=== PATIENT | female | born 2000 | race Hispanic/Latino ===

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

== ENCOUNTER 2023-04-23 17:18 | Emergency (ER) | payer OTHER, SELFPAY ==
[2023-04-23] MEDS ORDERED: Acetaminophen 500 MG TAB ONE (17:49)
[2023-04-23 18:15] LABS: Bilirubin Neg (Negative); Blood, Urine Negative (Negative); Clarity Clear (Clear); Glucose, Urine (Dipstick) Normal (Negative); Ketone, Urine Negative (Negative); Leukocyte Negative (Negative); Nitrite Negative (Negative); Protein, Urine (Dipstick) Negative (Neg-Trace); Specific Gravity, Urine 1.025 (1.005-1.030); Urobilinogen Normal mg/dL (Less than 2)
[2023-04-23 18:31] LABS: #Basophils 0.1 10x3/uL (0.0-0.2); #Eosinphils 0.4 10x3/uL (0.0-0.5); #Monocytes 0.9 10x3/uL (0.0-1.1); #Neutrophils 9.6 10x3/uL (1.5-8.4); %Basophils 0.4 % (0.0-2.0); %Eosinophils 2.5 % (0.0-6.0); %Monocytes 5.7 % (0.0-10.0); Hematocrit 37.8 % (34.9-44.5); Hemoglobin 12.8 g/dL (12.0-15.5); Mean Corpuscular HGB CONC 33.9 g/dL (32.0-36.0); Mean Corpuscular Hemoglobin 31.1 pg (27.0-33.0); Mean Corpuscular Volume 91.7 fl (81.6-98.3); Platelet Count 388 10x3/uL (150-450); RBC Distribution Width 12.7 % (11.5-14.5); Red Blood Cell (RBC) Count 4.12 10x6/uL (3.90-5.03); White Blood Cell (WBC) Count 15.2 10x3/uL (3.5-10.5)
[2023-04-23 18:43] LABS: ALT (SGPT) 16 U/L (8-55); AST (SGOT) 12 U/L (5-34); Albumin 3.7 g/dL (3.5-5.0); Alkaline Phosphatase 68 U/L (40-100); Anion Gap 12 mmol/L (10-20); BUN (Urea Nitrogen) 7 mg/dL (7.0-18.7); Bilirubin, Total 0.2 mg/dL (0.2-1.2); Calc. Creatinine Clearance 0 mL/min (70-130); Carbon Dioxide 19 mmol/L (22-29); Chloride 108 mmol/L (98-107); Estimated GFR 137; Globulin 2.9 g/dL (2.4-3.5); Glucose 93 mg/dL (70-105); Potassium 3.9 mmol/L (3.5-5.1); Protein, Total 6.6 g/dL (6.0-8.3); Sodium 135 mmol/L (136-145)
[2023-04-23 18:54] LABS: Bacteria/HPF 2+ HPF (None Seen); CAUTI Indications for Culture Pregnancy; RBC/HPF 0-3 HPF (0-3); WBC/HPF 0-3 HPF (0-3)
[2023-04-23 18:55] LABS: Urine Culture Reflex Yes Yes
== END 2023-04-23 19:30 | disposition home or self-care (01) ==
LOC: CSHERS 17:18
DX: R42 Dizziness and giddiness (principal); I10 Essential (primary) hypertension; F17.290 Nicotine dependence, other tobacco product, uncomplicated
CPT/HCPCS: 36415; 80053; 81001; 85025; 87086; 99284

== ENCOUNTER 2023-08-27 21:26 | Day surgery (SDC) | payer OTHER ==
[2023-08-27 22:10] VITALS: BMI 38.9
== END 2023-08-27 22:50 | disposition home or self-care (01) ==
LOC: CSHLD/OP 21:26
PROVIDERS: ATTEND Family Medicine
DX: O9A.213 Injury, poisoning and certain other consequences of external causes complicating pregnancy, third trimester (principal); O34.211 Maternal care for low transverse scar from previous cesarean delivery; Z79.82 Long term (current) use of aspirin; Z79.899 Other long term (current) drug therapy; W01.0XXA Fall on same level from slipping, tripping and stumbling without subsequent striking against object, initial encounter; Z3A.35 35 weeks gestation of pregnancy

== ENCOUNTER 2023-09-22 05:36 | Inpatient (IN) | payer OTHER ==
[2023-09-19 10:54] LABS: Hematocrit 38.4 % (34.9-44.5); Hemoglobin 13.2 g/dL (12.0-15.5); Mean Corpuscular HGB CONC 34.4 g/dL (32.0-36.0); Mean Corpuscular Hemoglobin 30.7 pg (27.0-33.0); Mean Corpuscular Volume 89.3 fL (81.6-98.3); Mean Platelet Volume 10.3 fL (7.4-10.4); Platelet Count 361 10x3/uL (150-450); RBC Distribution Width 13.1 % (11.5-14.5)
[2023-09-19 11:43] LABS: HBsAg Index 0.15 S/CO (0-0.99); HIV (1/2) Antibody/Antigen Non-Reactive (NonReactive); HIV 1/2 INDEX 0.13 S/CO (<1.00); Hep B Surf Ag Non-Reactive S/CO (NonReactive); Syphilis Antibody Nonreactive (Nonreactive); Syphilis Antibody Index 0.03 S/CO (<1.00 Non-Reactive)
[2023-09-22 05:47] VITALS: BMI 39.6
[2023-09-22] MEDS ORDERED: Methylergonovine 0.2 MG/ML VIAL IM PRN (09:09)
[2023-09-22] MEDS ORDERED: Tranexamic Acid 1,000 MG/10 ML VIAL IVP PRN (09:09)
[2023-09-22] MEDS ORDERED: Bicitra 30 ML UDCUP PO PRN (09:09)
[2023-09-22] MEDS ORDERED: Misoprostol 200 MCG TAB PR PRN (09:09)
[2023-09-22] MEDS ORDERED: Promethazine HCl 25 MG/ML VIAL IM PRN (09:09)
[2023-09-22] MEDS ORDERED: Lactated Ringer's 1,000 ML IV SCH (09:09)
[2023-09-22] MEDS ORDERED: Oxytocin 30 units/NS 500 ML 500 ML IV SCH (09:09)
[2023-09-22] MEDS ORDERED: Diphenoxylate HCl/Atropine Tablet PO PRN (09:09)
[2023-09-22] MEDS ORDERED: hydrALAZINE 20 MG/ML VIAL SLOW IVP PRN ×2 (09:09→10:51)
[2023-09-22] MEDS ORDERED: Famotidine/PF 20 mg/2ml Vial SLOW IVP PRN (09:09)
[2023-09-22] MEDS ORDERED: CEFAZOLIN 2 GM in Sodium Chloride 0.9% 100 ML IVPB SCH (09:09)
[2023-09-22] MEDS ORDERED: Carboprost 250 MCG/ML AMP IM PRN (09:09)
[2023-09-22] MEDS: Ondansetron PF 4 MG/2 ML Vial IVP PRN (09:19)
[2023-09-22] MEDS ORDERED: Ondansetron PF 4 MG/2 ML Vial IVP PRN ×3 (10:15→10:51)
[2023-09-22] MEDS ORDERED: Moisturizing Cream (Eucerin) 113 GM JAR TOP PRN (10:15)
[2023-09-22] MEDS ORDERED: diphenhydrAMINE 50 MG/ML VIAL IVP PRN (10:15)
[2023-09-22] MEDS ORDERED: Naloxone HCl 0.4 mg/ml Vial IV PRN (10:15)
[2023-09-22] MEDS ORDERED: fentaNYL 50 mcg/mL 1 mL Vial SLOW IVP PRN (10:15)
[2023-09-22] MEDS ORDERED: Meperidine HCl/PF 25 MG (1 mL) VIAL SLOW IVP PRN (10:15)
[2023-09-22] MEDS ORDERED: Naloxone HCl 0.4 mg/ml Vial IVP PRN ×2 (10:15)
[2023-09-22] MEDS ORDERED: Communication Order-Pharmacy FS SCH (10:15)
[2023-09-22] MEDS ORDERED: Bisacodyl 10 MG SUPP PR PRN (10:51)
[2023-09-22] MEDS ORDERED: Lanolin Ointment 7 GM TUBE TOP PRN (10:51)
[2023-09-22] MEDS ORDERED: diphenhydrAMINE 25 MG CAP PO PRN (10:51)
[2023-09-22] MEDS ORDERED: Boostrix 0.5 ML (Tdap) VIAL (>/=7 yrs of age) IM ONE (10:51)
[2023-09-22] MEDS: Dexamethasone 4 mg/ml Vial ONE (10:53)
[2023-09-22] MEDS: Dexmedetomidine 200 MCG/2 ML VIAL ONE (10:53)
[2023-09-22] MEDS: CEFAZOLIN 2 GM VIAL ONE (10:53)
[2023-09-22] MEDS: Sterile Water 10 ML ONE (10:54)
[2023-09-22] MEDS: Ketorolac Tromethamine 30 MG (1 mL) VIAL ONE (10:54)
[2023-09-22] MEDS: Oxytocin 10 UNITS/ML VIAL ONE (10:54)
[2023-09-22] MEDS: Morphine PF 10 MG/10 ML VIAL ONE (10:54)
[2023-09-22] MEDS: Ondansetron PF 4 MG/2 ML Vial ONE ×2 (10:54)
[2023-09-22] MEDS: Methylergonovine 0.2 MG/ML VIAL ONE (10:54)
[2023-09-22] MEDS: Promethazine HCl 25 MG/ML VIAL IM PRN (11:42)
[2023-09-22] MEDS: Ketorolac Tromethamine 30 MG (1 mL) VIAL IVP SCH (14:05)
[2023-09-22] MEDS ORDERED: Ketorolac Tromethamine 30 MG (1 mL) VIAL IVP SCH (14:30)
[2023-09-22] MEDS: Ferrous Sulfate 325 MG TAB PO SCH (20:20)
[2023-09-22] MEDS: Docusate 100 MG CAP PO SCH (20:20)
[2023-09-22] MEDS: HYDROcodone/Acetaminophen 5/325 mg Tablet PO PRN (23:00)
[2023-09-22] MEDS: Simethicone Chewable 80 MG TAB PO PRN (23:00)
[2023-09-23 04:25] LABS: Hematocrit 30.7 % (34.9-44.5); Hemoglobin 10.7 g/dL (12.0-15.5); Mean Corpuscular HGB CONC 34.9 g/dL (32.0-36.0); Mean Corpuscular Hemoglobin 31.6 pg (27.0-33.0); Mean Corpuscular Volume 90.6 fL (81.6-98.3); Mean Platelet Volume 10.4 fL (7.4-10.4); Platelet Count 280 10x3/uL (150-450); RBC Distribution Width 13.3 % (11.5-14.5); Red Blood Cell (RBC) Count 3.39 10x6/uL (3.90-5.03); White Blood Cell (WBC) Count 15.2 10x3/uL (3.5-10.5)
[2023-09-23] MEDS: Prenatal Vitamin 1 TAB PO SCH (08:46)
[2023-09-23] MEDS: HYDROcodone/Acetaminophen 5/325 mg Tablet PO PRN (08:47)
[2023-09-23] MEDS: Ibuprofen 800 MG TAB PO SCH (14:28)
[2023-09-24 08:45] VITALS: BP 134/74; TEMP 97.6
== END 2023-09-24 17:15 | disposition home or self-care (01) | DRG 788 ==
LOC: EEVIPCON 05:36 → CSHLD 05:36 → CSHPP 11:20
PROVIDERS: ADMIT Family Medicine; ATTEND Family Medicine
PROC: 10D00Z1 Extraction of Products of Conception, Low, Open Approach (ICD-10-PCS; principal; 2023-09-22)
DX: O34.211 Maternal care for low transverse scar from previous cesarean delivery (principal); O99.214 Obesity complicating childbirth; Z3A.39 39 weeks gestation of pregnancy; Z37.0 Single live birth; E66.01 Morbid (severe) obesity due to excess calories; O76 Abnormality in fetal heart rate and rhythm complicating labor and delivery
CPT/HCPCS: 51702; 85027; 86780; 86850; 86900; 86901; 87340; 87389; J1100; J1885; J2210; J2274; J2405; J2550; J2590